=== PATIENT | female | born 1975 | race Two or more races ===

== ENCOUNTER 2024-11-29 08:24 | Emergency (ER) | payer MEDICAID, SELFPAY ==
[2024-11-29 08:56] VITALS: BP 139/78; PULSE 67; RESP 19; TEMP 36.9; O2SAT 95; BMI 46.6
--- NOTE | 2024-11-29 09:17 | EDNOTE_ITS ---
Upper Extremity Injury RME/HPI General Chief Complaint: Hand/Wrist Problems Stated Complaint: Right hand caught in the door Time Seen by Provider: 11/29/24 08:46 Source: patient Arrival date/time: 11/29/24 08:24 This is a 49-year-old female presents to the emergency department complaints of right hand/thumb pain. She reports she got her hand caught on the sliding door. This incident occurred yesterday has had mild pain and some ecchymosis noted. 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 No other injuries reported. Mode of arrival: ambulatory Limitations: no limitations Related Data Home Medications ?Medication ?Instructions ?Recorded ?Confirmed inhalational spacing device 06/24/19 10/07/20 (Aerochamber MV spacer) loratadine 10 mg tablet (Claritin) 10 mg PO QDAY 06/2410/07/20 ipratropium 0.5 mg-albuterol 3 mg 3 ml inhalation Q3H PRN SOB 10/07/20 10/07/20 (2.5 mg base)/3 mL nebulization soln montelukast 10 mg tablet 10 mg PO QDAY 10/07/2010/07 (Singulair) naproxen 500 mg tablet 500 mg PO BID 10/07/2010/07 omeprazole 20 mg tablet,delayed 20 mg PO QDAY 10/07/20 10/07/20 release prednisone 20 mg tablet 40 mg PO QDAY PRN SOB 10/07/20 Previous Rx's ?Medication ?Instructions ?Recorded albuterol sulfate 90 mcg/actuation 2 puff inhalation Q ID PRN 09/02/18 aerosol inhaler (Ventolin HFA) shortness of breath or wheezing #8.5 grams albuterol sulfate 2.5 mg/3 mL 2.5 mg (3 mL) inhalation QID #180 04/11/22 (0.083 %) solution for nebulization mL cetirizine 5 mg-pseudoephedrine ER 1 tab PO BID #14 ta bs 04/11/22 120 mg tablet,extended release,12hr (Zyrtec-D) Allergies Allergy/AdvReac Type Severity Reaction Status Date / Time morphine Allergy Severe DIFFICULTY Verified 11/29/24 08:27 BREATHING Review of Systems Review of Systems Systems Reviewed: All systems reviewed, normal except as documented Narrative Review of Systems: Gen: No fever, no chills, no weight loss EYES: No discharge, no visual changes, no pain HEENT: No ear pain, no congestion, no sore throat PULM: No shortness of breath, no cough, no congestion CV: No chest pain, no dyspnea on exertion, no palpitations GI: No nausea, no vomiting, no diarrhea, no pain, no constipation : No frequency, no urgency, no dysuria Musc/skel: Right hand pain, no back pain Skin: No rash Psyc: No hallucinations, no depression Heme/Lymph: No easy bleeding or bruising tendencies Neuro: No weakness, no headache ED Exam General Limitations: Present no limitations General appearance: Present alert and in no apparent distress Head Head exam: Present atraumatic Eye Eye exam: Present normal appearance, PERRL and EOMI ENT ENT exam: Present normal exam, normal oropharynx and mucous membranes moist Neck Neck exam: Present normal inspection, full ROM and trachea midline Chest Chest inspection: Present normal inspection and symmetric chest wall rise Respiratory Respiratory exam: Present normal lung sounds bilaterally Cardiovascular Cardiovascular exam: Present regular rate, normal rhythm and normal heart sounds Abdominal Exam Abdominal exam: Present soft and normal bowel sounds; Absent distention or tenderness Extremities Exam Extremities exam: Present full ROM Expanded Upper Extremity Exam Forearm/Wrist exam: Present tenderness and swelling Hand L/R front image: 2 1. other (Right thumb swelling ecchymosis noted CMS intact.) Back Exam Back exam: Present normal inspection and full ROM Neurological Exam Neurological exam: Present alert, oriented X3 and CN II-XII intact Psychiatric Psychiatric exam: Present normal affect and normal mood Skin Skin exam: Present warm, dry, intact and normal color Course Quality Measures none Orders Category Date Time Status XR hand comp RT min 3V Stat Exams 11/29/24 09:15 Completed Vital Signs Vital signs: Vital Signs Temperature 98.5 F 11/29/24 08:56 Pulse Rate 67 11/29/24 08:56 Respiratory Rate 19 11/29/24 08:56 Blood Pressure 139/78 H 11/29/24 08:56 Pulse Oximetry (%) 95 11/29/24 08:56 Oxygen Delivery Method Room Air 11/29/24 08:56 Extremity Injury MDM Narrative MDM Narrative:: NO light shifting or misalignment at the joint upon examining. Patient data External records reviewed:: [facility] previous records Clinical information provided by:: patient Social determinants that could affect healthcare access:: none Patient has the following chronic illnesses:: no How is presenting disease/condition affected by chronic disease/condition?: no chronic disease Evaluation data The following diagnostics were reviewed and interpreted by me:: lab results Lab and/or radiology exams considered but not ordered:: no Interpretation Summary: Examination: Hand, right 3 views Technique: Hand AP, oblique, lateral 3 views Date and time of exam: November 29, 2024, 0952 hrs. Indications: Injury to the hand one day ago with first digit pain Findings: No acute fracture. On the lateral view of the hand there is mild widening at the interphalangeal joint thumb No foreign body. No acute fracture Impression: On the lateral view of the hand there is mild widening at the interphalangeal joint of the thumb, clinical correlation advised, consider minor subluxation Medications / Prescriptions Medications or Prescriptions considered but not ordered:: no Medication administrations:: no Consultations Consultation(s) initiated? (list below): No Diagnosis Upper Extremity Injury Differential Diagnosis: sprain and strain of wrist, fracture of wrist, finger sprain, dislocation of finger and fracture of hand Most likely diagnosis given after review of the tests above:: hand sprain Admission Indicated Admission indicated?: not indicated Admission Request Was there a request for admission?: No Disposition Plan Disposition Plan: Discharge Discharge Attestation Discharge Attestation: The patient and all family members were given an opportunity to ask questions and understood the discharge instructions. Discharge instructions specifically effects, indications for sooner follow up or return to the emergency department, and the expected course of current diagnosis. Patient condition: Stable Discharge Plan Plan Patient Disposition: HOME (Self Care) Discharge Disposition comment: Stable Prescriptions/Referrals Prescriptions/Med Rec: No Action albuterol sulfate [Ventolin HFA] 90 mcg/actuation HFA aerosol inhaler 2 puff INH QID PRN (Reason: shortness of breath or wheezing) Qty: 8.5 0RF loratadine [Claritin] 10 mg Tablet 10 mg PO QDAY (DME) Aerochamber MV spacer 0 .ROUTE .MEDSUPPLY Rx Instructions: As directed ipratropium-albuterol 0.5 mg-3 mg(2.5 mg base)/3 mL Solution For Nebulization 3 ml INHALATION Q3H PRN (Reason: SOB) montelukast [Singulair] 10 mg Tablet 10 mg PO QDAY naproxen 500 mg tablet 500 mg PO BID omeprazole 20 mg tablet,delayed release (DR/EC) 20 mg PO QDAY prednisone 20 mg tablet 40 mg PO QDAY PRN (Reason: SOB) albuterol sulfate 2.5 mg /3 mL (0.083 %) solution for nebulization 2.5 mg inhalation QID Qty: 180 0RF cetirizine-pseudoephedrine [Zyrtec-D] 5-120 mg tablet extended release 12 hr 1 tab PO BID Qty: 14 0RF Referrals: Modesto Jean MD [Primary Care Provider] - In 1 week Problem List Clinical Impression: Finger sprain, Hand sprain Patient/Caregiver Discharge Instructions Discharge Activity: activity as tolerated Education Materials: ED Hand Sprain, ED Finger Sprain Additional Instructions: There is no fracture on your x-ray. Most likely sprain strain of hand Please use the volar splint intermittently for least 1 week. - Follow-up with your primary doctor. reTurn to the emergency department this any worsening symptoms in condition. Print Language: Spanish Stand Alone Forms: Beth Award Info., Work/School Release, Patient Portal Info Letter ROBERTA/NIESHA Supervising Physician ROBERTA/NIESHA Supervising Physician: Dr pelayo
[2024-11-29 10:51] VITALS: BP 152/90; PULSE 60; RESP 19; TEMP 36.9; O2SAT 96
== END 2024-11-29 11:47 | disposition home or self-care (01) ==
PROVIDERS: Emergency Provider Family Medicine; PCP Family Medicine
DX: S63.621A Sprain of interphalangeal joint of right thumb, initial encounter (principal); W23.2XXA Caught, crushed, jammed or pinched between a moving and stationary object, initial encounter
CPT/HCPCS: 73130; 99283

== ENCOUNTER 2025-02-26 16:12 | Emergency (ER) | payer SELFPAY ==
[2025-02-26 16:32] VITALS: BP 153/99; PULSE 79; RESP 18; TEMP 36.8; O2SAT 98; BMI 44.9
--- NOTE | 2025-02-26 16:40 | XR_ITS ---
Examination: Foot, right, 3 views Technique: AP, oblique, lateral views foot, 3 views Date and time of exam: February 26, 2025, 1733 hours INDICATIONS: Right lateral foot pain beginning 3 weeks ago FINDINGS: No acute fracture Minimal bunion deformity Minimal narrowing first metatarsophalangeal joint No cortical bone destruction. No foreign body IMPRESSION: Minimal bunion deformity Minimal narrowing first metatarsophalangeal joint
--- NOTE | 2025-02-26 16:40 | XR_ITS ---
Examination: Duplex scan of the lower extremity, unilateral right Date and time of exam: February 26, 2025, 1710 hours INDICATION: Right foot pain beginning 3 weeks ago Technique: Duplex scan of the extremity veins using B-mode/grayscale imaging and Doppler spectral analysis and color flow Attention is directed to internal echogenicity, compression and augmentation involving these veins, color flow assessment, spectral analysis Findings: Major deep venous structures in the extremity demonstrate normal course and caliber. There is no evidence of deep vein thrombosis. Normal color flow and spectral analysis Impression: Negative for DVT..
--- NOTE | 2025-02-26 16:40 | PD.EDRME ---
Rapid Medical Screening Exam RME Arrival date/time: 02/26/25 16:12 50-year-old female presents to the emergency room today for complaints of right foot pain intermittently Chief Complaint: Ankle/Foot Injury Time Seen by Provider: 02/26/25 16:17 Vital signs: Vital Signs Temperature 98.3 F 02/26/25 16:32 Pulse Rate 79 02/26/25 16:32 Respiratory Rate 18 02/26/25 16:32 Blood Pressure 153/99 H 02/26/25 16:32 Pulse Oximetry (%) 98 02/26/25 16:32 Oxygen Delivery Method Room Air 02/26/25 16:32
--- NOTE | 2025-02-26 17:47 | PD.EDANKLE ---
Lower Extremity Injury RME/HPI General Chief Complaint: Ankle/Foot Injury Stated Complaint: TOP R FOOT PAIN RADIATING TO KNEE Time Seen by Provider: 02/26/25 16:17 Arrival date/time: 02/26/25 16:12 50-year-old female presents to the Emergency Department today for complaints of intermittent right foot pain on and off for the last couple of days patient reports pain is on the dorsal aspect of the right foot patient reports no recent injury Limitations: no limitations RME / HPI RME / HPI Narrative: 02/26/25 16:12 50-year-old female presents to the emergency room today for complaints of right foot pain intermittently Related Data Home Medications ?Medication ?Instructions ?Recorded ?Confirmed inhalational spacing device 06/24/19 10/07/20 (Aerochamber MV spacer) loratadine 10 mg tablet (Claritin) 10 mg PO QDAY 06/24/19 10/07/20 ipratropium 0.5 mg-albuterol 3 mg 3 ml inhalation Q3H PRN SOB 10/07/20 10/07/20 (2.5 mg base)/3 mL nebulization soln montelukast 10 mg tablet 10 mg PO QDAY 10/07/20 10/07/20 (Singulair) naproxen 500 mg tablet 500 mg PO BID 10/07/20 10/07/20 omeprazole 20 mg tablet,delayed 20 mg PO QDAY 10/07/20 10/07/20 release prednisone 20 mg tablet 40 mg PO QDAY PRN SOB 10/07/20 10/07/20 Previous Rx's ?Medication ?Instructions ?Recorded albuterol sulfate 90 mcg/actuation 2 puff inhalation QID PRN 09/02/18 aerosol inhaler (Ventolin HFA) shortness of breath or wheezing #8.5 grams albuterol sulfate 2.5 mg/3 mL 2.5 mg (3 mL) inhalation QID #180 04/11/22 (0.083 %) solution for nebulization mL cetirizine 5 mg-pseudoephedrine ER 1 tab PO BID #14 tabs 04/11/22 120 mg tablet,extended release,12hr (Zyrtec-D) meloxicam 7.5 mg tablet 7.5 mg PO QDAY 7 days #7 tabs 02/26/25 Allergies Allergy/AdvReac Type Severity Reaction Status Date / Time morphine Allergy Severe DIFFICULTY Verified 02/26/25 16:14 BREATHING Review of Systems Review of Systems Systems Reviewed: All systems reviewed, normal except as documented Constitutional Constitutional: Reports system reviewed and no additional complaints, except as documented, Denies fever(s) and Denies headache(s) Eyes Eyes: Reports system reviewed and no additional complaints, except as documented and Denies blurry vision ENT Ears, Nose, Mouth, and Throat: Reports system reviewed and no additional complaints, except as documented, Denies headache(s), Denies nasal congestion and Denies nasal discharge Cardiovascular Cardiovascular: Reports system reviewed and no additional complaints, except as documented, Denies chest pain and Denies dyspnea Respiratory Respiratory: Reports system reviewed and no additional complaints, except as documented, Denies chest congestion, Denies cough and Denies dyspnea Gastrointestinal Gastrointestinal: Reports system reviewed and no additional complaints, except as documented and Denies abdominal pain Musculoskeletal Musculoskeletal: Reports system reviewed and no additional complaints, except as documented, Reports arthralgias, Denies deformity and Denies joint swelling Integumentary/Breasts Skin/Breast: Reports system reviewed and no additional complaints, except as documented and Denies rash Neurologic Neurologic: Reports system reviewed and no additional complaints, except as documented, Reports as per HPI and Denies headache(s) Past Medical History Past Medical History CARDIAC: Negative Congestive Heart Failure RESPIRATORY: Positive Asthma; Negative Chronic Obstructive Pulmonary Disease (COPD) GASTROINTESTINAL: Positive Gastrointestinal Disorders, Gall Bladder Disease and Gastroesophageal Reflux Disease GENITOURINARY: Negative Renal Disease ENDOCRINE: Negative Diabetes Mellitus Type 1 or Diabetes Mellitus Type 2 Social History SMOKING STATUS: Never smoker ED Exam General Limitations: Present no limitations General appearance: Present alert and in no apparent distress Head Head exam: Present atraumatic Eye Eye exam: Present normal appearance, PERRL and EOMI ENT ENT exam: Present normal exam, normal oropharynx and mucous membranes moist Neck Neck exam: Present normal inspection, full ROM and trachea midline Chest Chest inspection: Present normal inspection and symmetric chest wall rise Respiratory Respiratory exam: Present normal lung sounds bilaterally Cardiovascular Cardiovascular exam: Present regular rate, normal rhythm and normal heart sounds Abdominal Exam Abdominal exam: Present soft and normal bowel sounds Extremities Exam Extremities exam: Present normal inspection, full ROM, tenderness (Tenderness dorsal aspect right foot no swelling or bruising) and normal capillary refill Back Exam Back exam: Present normal inspection and full ROM Neurological Exam Neurological exam: Present alert, oriented X3 and CN II-XII intact Psychiatric Psychiatric exam: Present normal affect and normal mood Skin Skin exam: Present warm, dry, intact and normal color Course Quality Measures none Orders Category Date Time Status US venous doppler LE RT Stat Exams 02/26/25 16:40 Completed XR foot comp RT min 3V Stat Exams 02/26/25 16:40 Completed Vital Signs Vital signs: Vital Signs Temperature 98.3 F 02/26/25 16:32 Pulse Rate 79 02/26/25 16:32 Respiratory Rate 18 02/26/25 16:32 Blood Pressure 153/99 H 02/26/25 16:32 Pulse Oximetry (%) 98 02/26/25 16:32 Oxygen Delivery Method Room Air 02/26/25 16:32 O2 saturation 98% r.a wnl Extremity Injury, Lower MDM Narrative MDM Narrative:: 50-year-old female presents to the Emergency Department today for complaints of intermittent right foot pain on and off for the last couple of days patient reports pain is on the dorsal aspect of the right foot patient reports no recent injury Clinically patient well-appearing patient does not appear look toxic no acute distress Exam patient has mild tenderness to the dorsal aspect of the right foot the patient has no bruising or swelling Imaging of the right foot obtained no acute emergent findings noted Patient discharged home in no distress to follow-up primary care doctor next 24 to 48 hours for worsening symptoms or concerns to return immediately Patient data External records reviewed:: [facility] previous records Clinical information provided by:: patient Social determinants that could affect healthcare access:: none Patient has the following chronic illnesses:: none How is presenting disease/condition affected by chronic disease/condition?: no chronic disease Evaluation data The following diagnostics were reviewed and interpreted by me:: radiology exam(s) Lab and/or radiology exams considered but not ordered:: Radiology obtained Interpretation Summary: Reviewed by me Medications / Prescriptions Medications or Prescriptions considered but not ordered:: Rx given Medication administrations:: Rx given Consultations Consultation(s) initiated? (list below): No Diagnosis Most likely diagnosis given after review of the tests above:: Myalgia, arthralgia Admission Indicated Admission indicated?: not indicated Admission Request Was there a request for admission?: No Disposition Plan Disposition Plan: Discharge Discharge Attestation Discharge Attestation: The patient and all family members were given an opportunity to ask questions and understood the discharge instructions. Discharge instructions specifically effects, indications for sooner follow up or return to the emergency department, and the expected course of current diagnosis. Patient condition: Stable Discharge Plan Plan Patient Disposition: HOME (Self Care) Discharge Disposition comment: Stable Prescriptions/Referrals Prescriptions/Med Rec: New meloxicam 7.5 mg tablet 7.5 mg PO QDAY 7 Days Qty: 7 0RF No Action albuterol sulfate [Ventolin HFA] 90 mcg/actuation HFA aerosol inhaler 2 puff INH QID PRN (Reason: shortness of breath or wheezing) Qty: 8.5 0RF loratadine [Claritin] 10 mg Tablet 10 mg PO QDAY (DME) Aerochamber MV spacer 0 .ROUTE .MEDSUPPLY Rx Instructions: As directed ipratropium-albuterol 0.5 mg-3 mg(2.5 mg base)/3 mL Solution For Nebulization 3 ml INHALATION Q3H PRN (Reason: SOB) montelukast [Singulair] 10 mg Tablet 10 mg PO QDAY naproxen 500 mg tablet 500 mg PO BID omeprazole 20 mg tablet,delayed release (DR/EC) 20 mg PO QDAY prednisone 20 mg tablet 40 mg PO QDAY PRN (Reason: SOB) albuterol sulfate 2.5 mg /3 mL (0.083 %) solution for nebulization 2.5 mg inhalation QID Qty: 180 0RF cetirizine-pseudoephedrine [Zyrtec-D] 5-120 mg tablet extended release 12 hr 1 tab PO BID Qty: 14 0RF Referrals: Modesto Jean MD [Primary Care Provider, Family Practice] - In 1 week Problem List Clinical Impression: Foot pain, right Patient/Caregiver Discharge Instructions Education Materials: ED RICE Additional Instructions: Please follow up with your primary care doctor in the next 24-48hrs for any worsening symptoms return here immediately Print Language: Bengali Stand Alone Forms: Beth Award Info., Work/School Release, Patient Portal Info Letter PA/[employer] Supervising Physician PA/[employer] Supervising Physician: Dr. pelayo
== END 2025-02-26 18:34 | disposition home or self-care (01) ==
PROVIDERS: Emergency Provider Family Medicine; PCP Family Medicine
DX: M79.671 Pain in right foot (principal)
CPT/HCPCS: 73630; 93971; 99283